=== PATIENT | female | born 1955 | race Caucasian/White ===

== ENCOUNTER 2020-06-23 09:14 | Inpatient (IN) ==
[2020-06-23] MEDS ORDERED: ASPIRIN 325 MG TABLET PO STA (09:36)
[2020-06-23 10:11] LABS: Basophils % 0.3 % (0.0-0.8); Eosinophils # 0.1 10*3/uL (0.0-0.87); Eosinophils % 1.1 % (0.00-10.9); Hematocrit 39.3 VOL% (35.7-47.0); Hemoglobin 12.7 GM/DL (12.0-16.0); Immature Granulocytes % 0.3 %; Immature Granulocytes Absolute 0.03 #; Lymphocytes # 1.4 10*3/uL (1.4-4.0); Lymphocytes % 14.9 % (21.3-54.2); Mean Corpuscular HGB Conc 32.3 GM/DL (32-36); Mean Corpuscular Volume 89.9 FL (87-102); Mean Platelet Volume 9.6 FL (9.6-12.0); Monocytes % 6.9 % (1.7-12.7); Neutrophils % 76.5 % (38.7-73.9); Platelet Count 259 T/CUMM (130-400); Red Blood Count 4.37 MC/CUMM (3.8-5.5); Red Cell Distribution Width 12.3 % (9.3-17.3); White Blood Count 9.2 T/CUMM (4-12)
[2020-06-23 10:19] LABS: PT Patient Result 10.6 SECS (9.8-11.9)
[2020-06-23 10:31] LABS: Bilirubin,Total 0.8 MG/DL (0.2-1.0); Calcium 8.7 MG/DL (8.5-10.1); Osmolality,Calculated 281.7 MOS/KG (273-304); Potassium 3.9 MMOL/L (3.5-5.1); Total Protein 6.5 G/DL (6.4-8.3)
[2020-06-23] MEDS ORDERED: FUROSEMIDE 40 MG/4 ML VIAL IV STA (10:54)
[2020-06-23] MEDS ORDERED: SIMETHICONE CHEW 125 MG TABLET PO PRN (11:59)
[2020-06-23] MEDS ORDERED: hydrALAZINE 20 MG/1 ML VIAL IV PRN (11:59)
[2020-06-23] MEDS ORDERED: DOCUSATE SODIUM 100 MG CAPSULE PO PRN (11:59)
[2020-06-23] MEDS ORDERED: ONDANSETRON 4 MG/2 ML VIAL IV PRN (11:59)
[2020-06-23] MEDS ORDERED: GLUCAGON 1 MG VIAL IM PRN (11:59)
[2020-06-23] MEDS ORDERED: DEXTROSE 50% 25 GM/50 ML VIAL IV PRN (11:59)
[2020-06-23] MEDS ORDERED: ACETAMINOPHEN 325 MG TABLET PO PRN (11:59)
[2020-06-23] MEDS: INSULIN LISPRO 100 UNIT/ML SUBCUT SCH ×2 (16:57→21:43)
[2020-06-23] MEDS: ASPIRIN EC 81 MG TABLET PO SCH (16:57)
[2020-06-23] MEDS: FUROSEMIDE 40 MG/4 ML VIAL IV SCH ×2 (16:58→17:05)
[2020-06-23] MEDS: LOSARTAN 25 MG TABLET PO SCH (16:58)
[2020-06-23] MEDS: carvediloL 3.125 MG TABLET PO SCH (16:58)
[2020-06-23] MEDS: ALBUTEROL/IPRATROPIUM 3 ML NEB RESP TX SCH (19:30)
[2020-06-23] MEDS: LORazepam 1 MG TABLET PO SCH (20:49)
[2020-06-23] MEDS: ENOXAPARIN 40 MG/0.4 ML SYRINGE SUBCUT SCH (20:49)
[2020-06-23] MEDS: KETOROLAC 0.5% OPH SOLN 5 ML BOTTLE RIGHT EYE SCH (20:50)
[2020-06-23] MEDS: prednisoLONE ACETATE 1% OPH SUSP 5 ML BOTTLE RIGHT EYE SCH (20:50)
[2020-06-23] MEDS: DORZOLAMIDE/TIMOLOL OPH SOLN 10 ML BOTTLE BOTH EYES SCH (20:50)
[2020-06-23] MEDS: ATORVASTATIN 40 MG TABLET PO SCH (20:55)
[2020-06-23] MEDS ORDERED: SIMVASTATIN 20 MG TABLET PO SCH (21:00)
[2020-06-24] MEDS: ALBUTEROL/IPRATROPIUM 3 ML NEB RESP TX SCH ×4 (01:43→19:50)
[2020-06-24 05:32] LABS: Basophils % 0.3 % (0.0-0.8); Eosinophils # 0.2 10*3/uL (0.0-0.87); Eosinophils % 3.1 % (0.00-10.9); Hematocrit 33.5 VOL% (35.7-47.0); Hemoglobin 10.5 GM/DL (12.0-16.0); Immature Granulocytes % 0.3 %; Immature Granulocytes Absolute 0.02 #; Lymphocytes # 2.6 10*3/uL (1.4-4.0); Lymphocytes % 36.2 % (21.3-54.2); Mean Corpuscular HGB Conc 31.3 GM/DL (32-36); Mean Corpuscular Volume 91.5 FL (87-102); Mean Platelet Volume 9.9 FL (9.6-12.0); Neutrophils % 49.1 % (38.7-73.9); Platelet Count 248 T/CUMM (130-400); Red Blood Count 3.66 MC/CUMM (3.8-5.5); Red Cell Distribution Width 12.4 % (9.3-17.3); White Blood Count 7.1 T/CUMM (4-12)
[2020-06-24 06:15] LABS: Albumin 2.6 G/DL (3.4-5.0); Calcium 8.4 MG/DL (8.5-10.1); Osmolality,Calculated 278.8 MOS/KG (273-304); Potassium 3.4 MMOL/L (3.5-5.1); Risk Ratio 3.36; Thyroid Stimulating Hormone 1.39 uIU/ml (0.358-3.74); Total Protein 6.3 G/DL (6.4-8.3); VLDL CHOLESTEROL 21.2 MG/DL
[2020-06-24] MEDS: PANTOPRAZOLE 40 MG TABLET PO SCH (06:30)
[2020-06-24] MEDS ORDERED: POTASSIUM CHLORIDE 20 MEQ TABLET PO ONE (07:53)
[2020-06-24] MEDS ORDERED: POTASSIUM CHLORIDE 20 MEQ TABLET PO PRN (07:53)
[2020-06-24] MEDS ORDERED: VERAPAMIL 120 MG TABLET PO SCH (09:00)
[2020-06-24] MEDS ORDERED: ASPIRIN EC 325 MG TABLET PO SCH (09:00)
[2020-06-24] MEDS: ASPIRIN EC 81 MG TABLET PO SCH (09:26)
[2020-06-24] MEDS: CETIRIZINE 10 MG TABLET PO SCH (09:26)
[2020-06-24] MEDS: FLUoxetine 20 MG CAPSULE PO SCH (09:26)
[2020-06-24] MEDS: FUROSEMIDE 40 MG/4 ML VIAL IV SCH ×2 (09:27→16:38)
[2020-06-24] MEDS: carvediloL 3.125 MG TABLET PO SCH ×2 (09:27→16:38)
[2020-06-24] MEDS: INSULIN LISPRO 100 UNIT/ML SUBCUT SCH ×4 (09:27→21:43)
[2020-06-24] MEDS: KETOROLAC 0.5% OPH SOLN 5 ML BOTTLE LEFT EYE SCH (09:28)
[2020-06-24] MEDS: KETOROLAC 0.5% OPH SOLN 5 ML BOTTLE RIGHT EYE SCH ×4 (09:29→21:44)
[2020-06-24] MEDS: DORZOLAMIDE/TIMOLOL OPH SOLN 10 ML BOTTLE BOTH EYES SCH ×2 (09:29→21:44)
[2020-06-24] MEDS: prednisoLONE ACETATE 1% OPH SUSP 5 ML BOTTLE LEFT EYE SCH (09:30)
[2020-06-24] MEDS: prednisoLONE ACETATE 1% OPH SUSP 5 ML BOTTLE RIGHT EYE SCH ×4 (09:30→21:44)
[2020-06-24] MEDS: LOSARTAN 25 MG TABLET PO SCH (09:33)
[2020-06-24] MEDS ORDERED: MAGNESIUM SULF RIDER 2 GM in PREMIX 1 EACH IV ONE (12:17)
[2020-06-24] MEDS: ENOXAPARIN 40 MG/0.4 ML SYRINGE SUBCUT SCH (21:43)
[2020-06-24] MEDS: ATORVASTATIN 40 MG TABLET PO SCH (21:43)
[2020-06-24] MEDS: LORazepam 1 MG TABLET PO SCH (21:43)
[2020-06-25] MEDS: ALBUTEROL/IPRATROPIUM 3 ML NEB RESP TX SCH ×4 (01:57→19:30)
[2020-06-25 06:40] LABS: Basophils % 0.3 % (0.0-0.8); Eosinophils # 0.2 10*3/uL (0.0-0.87); Eosinophils % 3.7 % (0.00-10.9); Hematocrit 31.9 VOL% (35.7-47.0); Hemoglobin 10.4 GM/DL (12.0-16.0); Immature Granulocytes % 0.5 %; Immature Granulocytes Absolute 0.03 #; Lymphocytes # 2.2 10*3/uL (1.4-4.0); Lymphocytes % 33.2 % (21.3-54.2); Mean Corpuscular HGB Conc 32.6 GM/DL (32-36); Mean Corpuscular Volume 90.4 FL (87-102); Mean Platelet Volume 9.9 FL (9.6-12.0); Monocytes % 9.4 % (1.7-12.7); Neutrophils % 52.9 % (38.7-73.9); Platelet Count 244 T/CUMM (130-400); Red Blood Count 3.53 MC/CUMM (3.8-5.5); Red Cell Distribution Width 12.4 % (9.3-17.3); White Blood Count 6.5 T/CUMM (4-12)
[2020-06-25 06:55] LABS: Calcium 8.6 MG/DL (8.5-10.1); Osmolality,Calculated 286.3 MOS/KG (273-304); Potassium 3.6 MMOL/L (3.5-5.1)
[2020-06-25] MEDS: PANTOPRAZOLE 40 MG TABLET PO SCH (07:00)
[2020-06-25] MEDS ORDERED: diphenhydrAMINE CAP 25 MG CAPSULE PO ONE (07:36)
[2020-06-25] MEDS ORDERED: DIAZEPAM 5 MG TABLET PO ONE (07:36)
[2020-06-25] MEDS: carvediloL 3.125 MG TABLET PO SCH ×2 (08:42→16:58)
[2020-06-25] MEDS: ASPIRIN EC 81 MG TABLET PO SCH (08:42)
[2020-06-25] MEDS: POTASSIUM CHLORIDE 20 MEQ TABLET PO SCH ×2 (08:42→22:50)
[2020-06-25] MEDS: CETIRIZINE 10 MG TABLET PO SCH (08:42)
[2020-06-25] MEDS: LOSARTAN 25 MG TABLET PO SCH (08:43)
[2020-06-25] MEDS: FLUoxetine 20 MG CAPSULE PO SCH (08:43)
[2020-06-25] MEDS: INSULIN LISPRO 100 UNIT/ML SUBCUT SCH ×4 (08:44→22:50)
[2020-06-25] MEDS: FUROSEMIDE 40 MG/4 ML VIAL IV SCH ×2 (08:44→16:58)
[2020-06-25] MEDS: prednisoLONE ACETATE 1% OPH SUSP 5 ML BOTTLE LEFT EYE SCH (08:51)
[2020-06-25] MEDS: KETOROLAC 0.5% OPH SOLN 5 ML BOTTLE LEFT EYE SCH (08:51)
[2020-06-25] MEDS: prednisoLONE ACETATE 1% OPH SUSP 5 ML BOTTLE RIGHT EYE SCH ×4 (08:51→22:50)
[2020-06-25] MEDS: DORZOLAMIDE/TIMOLOL OPH SOLN 10 ML BOTTLE BOTH EYES SCH ×2 (08:51→21:50)
[2020-06-25] MEDS: KETOROLAC 0.5% OPH SOLN 5 ML BOTTLE RIGHT EYE SCH ×4 (08:51→23:02)
[2020-06-25] MEDS: LORazepam 1 MG TABLET PO SCH (21:50)
[2020-06-25] MEDS: ATORVASTATIN 40 MG TABLET PO SCH (22:50)
[2020-06-25] MEDS: ENOXAPARIN 40 MG/0.4 ML SYRINGE SUBCUT SCH (23:18)
[2020-06-26] MEDS: ALBUTEROL/IPRATROPIUM 3 ML NEB RESP TX SCH ×4 (01:58→20:23)
[2020-06-26] MEDS ORDERED: SODIUM CHLORIDE 0.9% 1,000 ML IV SCH (02:00)
[2020-06-26 05:44] LABS: Basophils % 0.3 % (0.0-0.8); Eosinophils # 0.3 10*3/uL (0.0-0.87); Hematocrit 33.8 VOL% (35.7-47.0); Hemoglobin 10.9 GM/DL (12.0-16.0); Immature Granulocytes % 0.4 %; Immature Granulocytes Absolute 0.03 #; Lymphocytes # 2.2 10*3/uL (1.4-4.0); Lymphocytes % 33.4 % (21.3-54.2); Mean Corpuscular HGB Conc 32.2 GM/DL (32-36); Mean Corpuscular Volume 90.4 FL (87-102); Mean Platelet Volume 9.7 FL (9.6-12.0); Monocytes % 11.3 % (1.7-12.7); Neutrophils % 50.6 % (38.7-73.9); Platelet Count 263 T/CUMM (130-400); Red Blood Count 3.74 MC/CUMM (3.8-5.5); Red Cell Distribution Width 12.2 % (9.3-17.3); White Blood Count 6.7 T/CUMM (4-12)
[2020-06-26] MEDS ORDERED: DIAZEPAM 5 MG TABLET PO ONE (06:00)
[2020-06-26] MEDS ORDERED: diphenhydrAMINE CAP 25 MG CAPSULE PO ONE (06:00)
[2020-06-26 06:09] LABS: Calcium 8.6 MG/DL (8.5-10.1); Osmolality,Calculated 282.5 MOS/KG (273-304); Potassium 3.9 MMOL/L (3.5-5.1)
[2020-06-26] MEDS: PANTOPRAZOLE 40 MG TABLET PO SCH (06:46)
[2020-06-26] MEDS ORDERED: HEPARIN/NACL 0.9% 2 UNITS/ML 1,000 ML IV ONE (06:47)
[2020-06-26] MEDS ORDERED: LIDOCAINE 1% 20 ML VIAL ONE ×2 (06:47→07:15)
[2020-06-26] MEDS ORDERED: MIDAZOLAM 2 MG/2 ML VIAL ONE (07:15)
[2020-06-26] MEDS ORDERED: NITROGLYCERIN DRIP 50 MG/250 ML BOTTLE IV ONE (07:15)
[2020-06-26] MEDS ORDERED: VERAPAMIL 5 MG/2 ML VIAL ONE (07:15)
[2020-06-26] MEDS ORDERED: HYDROmorphone 2 MG/1 ML VIAL ONE (07:15)
[2020-06-26] MEDS ORDERED: diphenhydrAMINE 50 MG/1 ML VIAL ONE (07:21)
[2020-06-26] MEDS ORDERED: LABETALOL 20 MG/4 ML SYRINGE IV ONE (07:31)
[2020-06-26] MEDS ORDERED: ENOXAPARIN 30 MG/0.3 ML SYRINGE ONE (07:36)
[2020-06-26] MEDS: INSULIN LISPRO 100 UNIT/ML SUBCUT SCH ×5 (07:50→21:33)
[2020-06-26] MEDS ORDERED: ENOXAPARIN 60 MG/0.6 ML SYRINGE ONE (07:58)
[2020-06-26] MEDS ORDERED: TICAGRELOR 90 MG TABLET ONE (08:22)
[2020-06-26] MEDS ORDERED: ZALEPLON 5 MG CAPSULE PO PRN (08:23)
[2020-06-26] MEDS ORDERED: DEXTROSE 50% 25 GM/50 ML VIAL IV PRN (08:23)
[2020-06-26] MEDS: carvediloL 3.125 MG TABLET PO SCH ×2 (09:49→17:57)
[2020-06-26] MEDS: MULTIVITAMIN (CENTRUM) TABLET PO SCH (09:49)
[2020-06-26] MEDS: ASPIRIN EC 81 MG TABLET PO SCH (09:49)
[2020-06-26] MEDS: FLUoxetine 20 MG CAPSULE PO SCH (09:49)
[2020-06-26] MEDS: LOSARTAN 25 MG TABLET PO SCH (09:49)
[2020-06-26] MEDS: POTASSIUM CHLORIDE 20 MEQ TABLET PO SCH ×2 (09:50→21:28)
[2020-06-26] MEDS: CETIRIZINE 10 MG TABLET PO SCH (09:50)
[2020-06-26] MEDS: FUROSEMIDE 40 MG/4 ML VIAL IV SCH ×2 (09:51→17:56)
[2020-06-26] MEDS: KETOROLAC 0.5% OPH SOLN 5 ML BOTTLE LEFT EYE SCH (10:41)
[2020-06-26] MEDS: prednisoLONE ACETATE 1% OPH SUSP 5 ML BOTTLE LEFT EYE SCH (10:42)
[2020-06-26] MEDS: KETOROLAC 0.5% OPH SOLN 5 ML BOTTLE RIGHT EYE SCH ×4 (10:42→21:27)
[2020-06-26] MEDS: DORZOLAMIDE/TIMOLOL OPH SOLN 10 ML BOTTLE BOTH EYES SCH ×2 (10:42→21:27)
[2020-06-26] MEDS: prednisoLONE ACETATE 1% OPH SUSP 5 ML BOTTLE RIGHT EYE SCH ×4 (10:42→21:28)
[2020-06-26] MEDS: TICAGRELOR 90 MG TABLET PO SCH ×2 (10:43→21:28)
[2020-06-26 15:52] VITALS: BP 139/65
[2020-06-26] MEDS: LORazepam 1 MG TABLET PO SCH (21:28)
[2020-06-26] MEDS: ATORVASTATIN 40 MG TABLET PO SCH (21:28)
[2020-06-27] MEDS: ALBUTEROL/IPRATROPIUM 3 ML NEB RESP TX SCH ×2 (01:00→07:50)
[2020-06-27 06:57] LABS: Basophils % 0.3 % (0.0-0.8); Eosinophils # 0.3 10*3/uL (0.0-0.87); Eosinophils % 4.4 % (0.00-10.9); Hematocrit 34.1 VOL% (35.7-47.0); Hemoglobin 10.7 GM/DL (12.0-16.0); Immature Granulocytes % 0.3 %; Immature Granulocytes Absolute 0.02 #; Lymphocytes % 29.6 % (21.3-54.2); Mean Corpuscular HGB Conc 31.4 GM/DL (32-36); Mean Corpuscular Volume 90.9 FL (87-102); Mean Platelet Volume 9.8 FL (9.6-12.0); Monocytes % 9.4 % (1.7-12.7); Platelet Count 260 T/CUMM (130-400); Red Blood Count 3.75 MC/CUMM (3.8-5.5); Red Cell Distribution Width 12.2 % (9.3-17.3); White Blood Count 6.6 T/CUMM (4-12)
[2020-06-27 07:16] LABS: Calcium 8.6 MG/DL (8.5-10.1); Osmolality,Calculated 285.4 MOS/KG (273-304); Potassium 3.9 MMOL/L (3.5-5.1)
[2020-06-27 07:19] LABS: Blood Urea Nitrogen 15 MG/DL (7-18); Calcium 8.8 MG/DL (8.5-10.1); Carbon Dioxide 29 MMOL/L (21-32); Estimated Glom Filtration Rate 127 ML/MIN; Glucose 206 MG/DL (74-106); Osmolality,Calculated 279.8 MOS/KG (273-304); Potassium 3.8 MMOL/L (3.5-5.1); Sodium 137 MMOL/L (136-145); Troponin I 0.015 NG/ML (0.00-0.045)
[2020-06-27] MEDS: TICAGRELOR 90 MG TABLET PO SCH (08:18)
[2020-06-27] MEDS: FLUoxetine 20 MG CAPSULE PO SCH (08:18)
[2020-06-27] MEDS: INSULIN LISPRO 100 UNIT/ML SUBCUT SCH (08:18)
[2020-06-27] MEDS: MULTIVITAMIN (CENTRUM) TABLET PO SCH (08:18)
[2020-06-27] MEDS: PANTOPRAZOLE 40 MG TABLET PO SCH (08:19)
[2020-06-27] MEDS: CETIRIZINE 10 MG TABLET PO SCH (08:19)
[2020-06-27] MEDS: carvediloL 3.125 MG TABLET PO SCH (08:19)
[2020-06-27] MEDS: POTASSIUM CHLORIDE 20 MEQ TABLET PO SCH (08:19)
[2020-06-27] MEDS: ASPIRIN EC 81 MG TABLET PO SCH (08:19)
[2020-06-27] MEDS: DORZOLAMIDE/TIMOLOL OPH SOLN 10 ML BOTTLE BOTH EYES SCH (08:28)
[2020-06-27] MEDS: KETOROLAC 0.5% OPH SOLN 5 ML BOTTLE RIGHT EYE SCH (08:28)
[2020-06-27] MEDS: KETOROLAC 0.5% OPH SOLN 5 ML BOTTLE LEFT EYE SCH (08:28)
[2020-06-27] MEDS: FUROSEMIDE 40 MG/4 ML VIAL IV SCH (08:28)
[2020-06-27] MEDS: LOSARTAN 25 MG TABLET PO SCH (08:29)
[2020-06-27] MEDS: prednisoLONE ACETATE 1% OPH SUSP 5 ML BOTTLE RIGHT EYE SCH (08:29)
[2020-06-27] MEDS: prednisoLONE ACETATE 1% OPH SUSP 5 ML BOTTLE LEFT EYE SCH (08:29)
== END 2020-06-27 09:49 | disposition home or self-care (01) | DRG 247 ==
LOC: N.ED 09:14 → N.EDINP 09:14 → SUATTDRO 11:59 → N.TELEN 13:05
PROVIDERS: ADMIT Emergency Medicine; ATTEND Internal Medicine
PROC: CLCCHCL (ICD-10-PCS; 2020-06-26 07:15)